=== PATIENT | female | born 1945 | race Caucasian/White ===

== ENCOUNTER 2019-11-08 10:41 | Observation (INO) | payer MEDICARE ==
[~2019-11-08] VITALS: Ht 170.2 cm; Wt 68.0 kg
--- NOTE | 2019-11-08 10:41 | NUR ---
ARRIVED VIA EMS REBECCA JARVISD, JAIME [place]
--- NOTE | 2019-11-08 10:41 | NUR ---
PT TO ROOM [facility]EM[facility] IN NO DISTRESS
--- NOTE | 2019-11-08 11:00 | NUR ---
PT WAS GIVEN 324MG ASA AT [facility] [employer]PER[employer]
[2019-11-08 11:31] LABS: HEMOGLOBIN 15.5 g/dl (12.0-16.0); IMMATURE GRANULOCYTES 0.2 % (0.0-5.0); MEAN CELL VOLUME 89.8 fL CALC (80.0-100.0); MEAN CORPUSCULAR HGB 30.3 pG CALC (26.0-32.0); MEAN CORPUSCULAR HGB CONC 33.7 g/L CALC (32.0-36.0); NEUT# 3.34 thou/uL (2.00-7.15); RED BLOOD COUNT 5.12 mill/uL (4.20-5.60); RED CELL DISTRI WIDTH 12.7 % (11.5-15.5)
[2019-11-08 11:45] LABS: ANION GAP 14 (6-22 (CALC)); BUN 11 mg/dL (8-23); BUN/CREATININE RATIO 17 (12-20 (CALC)); CARBON DIOXIDE 27 mmol/l (22-30); CHLORIDE 105 mmol/l (95-108); CREATININE 0.7 mg/dL (0.5-1.0); GFR > 60 ML/MIN (>=60 (CALC)); GFR FOR AFR.AMER. > 60 ML/MIN (>=60 (CALC)); POTASSIUM 3.9 mmol/l (3.5-5.1); SODIUM 142 mmol/l (137-146)
--- NOTE | 2019-11-08 12:00 | NUR ---
PT STATES HSE HAS HAD CHEST PAIN ON AND OFF FOR MONTHS, COMAPLINS OF ANXIETY/FRUSTRATION WITH FAMILY MEMBERS
[2019-11-08 13:00] LABS: URINE BILIRUBIN - DIPSTICK NEGATIVE (NEGATIVE); URINE BLOOD DIPSTICK NEGATIVE (NEGATIVE); URINE COLOR YELLOW; URINE GLUCOSE - DIPSTICK NEGATIVE (NEGATIVE); URINE KETONE NEGATIVE (NEGATIVE); URINE LEUK ESTERASE NEGATIVE (NEGATIVE); URINE NITRITE - DIPSTICK NEGATIVE (Negative); URINE PROTEIN - DIPSTICK NEGATIVE (NEG-TRACE); URINE SPECIFIC GRAVITY 1.015; URINE UROBILINOGEN - DIPSTICK 0.2 E.U./dL (0.2)
--- NOTE | 2019-11-08 13:00 | NUR ---
PT RESTING ON STRETCHER, CALL LORENZ WITHIN REACH
--- NOTE | 2019-11-08 14:50 | NUR ---
PT RESTING AWARE OF PLANNED ADMISSION, CONTINUES TO REST AND DENY CP.
--- NOTE | 2019-11-08 15:24 | NUR ---
PT RESTING NO COMPLAINTS OF PAIN CALL KELECHI AMARO
--- NOTE | 2019-11-08 16:54 | NUR ---
SBAR PRINTED TO FLOOR
--- NOTE | 2019-11-08 17:14 | NUR ---
REPORT CALLED TO JAYLON
[2019-11-08 17:58] VITALS: BP 228/110
--- NOTE | 2019-11-08 17:58 | NUR ---
PT TRANSPORTED VIA WHEELCHAIR ACCOMPANIED BY ER STAFF. PT ALERT AND ORIENTED. DENIES ANY PAIN OR DISCOMFORT AT THIS TIME. AMBULATED WITH STEADY GAIT IN ROOM. PT ORIENTED TO ROOM AND CALL LIGHT SYSTEM. DISCUSSED POC. PT VERBALIZED UNDERSTANDING. CALL LIGHT WITHIN REACH. WILL CONTINUE TO MONITOR.
--- NOTE | 2019-11-08 18:00 | NUR ---
PT TRASNPORTED TO SURG WITH TELE VIA WHEELCHAIR, ALL BELONGINGS SENT WITH PT AND NURSE JAYLON AT [facility] ON ARRIVAL STANDING SCALE WEIGHT OBTAINED 149.5 LBS OR 68 KG.
[2019-11-08 18:33] VITALS: BP 196/87
--- NOTE | 2019-11-08 19:30 | NUR ---
PATIENT RESTING IN BEDHOB ELEVATED. PATIENT IS ALERT AND ORIENTEDX3. TELE MONITORING DEVICE IN PLACE. SALINE LOCK TO RAC INTACT-APPEARS HEALTHY AT THIS TIME. NO COMPLAINTS AT THIS TIME. CALL LIGHT IN REACH. WILL CONT TO MONITOR.
[2019-11-08 19:45] VITALS: BP 147/74
--- NOTE | 2019-11-08 21:25 | NUR ---
PATIENT CAME TO THE NURSING STATION AND C/O CHEST PAIN. APPEARS SOB AND ASSISTED BACK TO ROOM. ASSISTED BACK TO BED. VS TAKEN AND BP-185/106, HR-95, O2 SAT 98%. STATES THAT PAIN IS 10/10-C/O SQEEZING PRESSURE PAIN. O2 VIA NASAL CANNULA APPLIED. NITRO 0.4MG SL GIVEN. 2139-RESTING IN BED-O2 IN PLACE. STATES THAT PAIN IS IMPROVED BUT STILL 5/10 ON PAIN SCALE. VS-159/88, HR-90 WITH O2 SAT 99%. MEDICATED WITH NITRO 0.4MG SL. WILL CONT TO MONITOR. 0-EKG DONE. NO CHANGES NOTED FROM ADMISSION EKG. STAES THAT SHE IS FEELING MUCH BETTER. CALL LIGHT IN REACH. WILL CONT TO MONITOR.
[2019-11-08 21:40] VITALS: BP 159/88
[2019-11-08 22:06] VITALS: BP 132/80
[2019-11-09] VITALS: BP 142/80
--- NOTE | 2019-11-09 | NUR ---
APPEARS SLEEPING AT THIS TIME WITH O2 VIA NASAL CANNULA IN PLACE. RESP ARE EVEN AND UNLABORED. CALL LIGHT IN REACH. WILL CONT TO MONITOR.
--- NOTE | 2019-11-09 01:40 | NUR ---
PATIENT RESTING IN BED. TROP CONT TO BE NEG AT THIS TIME. CALL LIGHT IN REACH. WILL CONT TO MONITOR.
--- NOTE | 2019-11-09 04:00 | NUR ---
PATIENT RESTING IN BED-APPEARS SLEEPING WITH EYES CLOSED. RESP ARE EVEN AND UNLABORED. CALL LIGHT IN REACH. WILL CONT TO MONITOR.
[2019-11-09 05:12] VITALS: BP 145/93
--- NOTE | 2019-11-09 07:30 | NUR ---
PT RESTING IN BED. NO REP. DISTRESS NOTED. PT DENIES CHEST PAIN AT THIS TIME. ASSESSMENT COMPLETED. SALINE LOCK INTACT IN RIGHT AC, SITE WITHOUT REDNESS OR EDEMA NOTED. WILL CONTINUE TO MONITOR. CALL LIGHT WITHIN REACH.
[2019-11-09 07:34] VITALS: BP 131/77
[2019-11-09 07:40] VITALS: BP 144/75
[2019-11-09 10:30] VITALS: BP 131/69
--- NOTE | 2019-11-09 12:33 | NUR ---
PT RESTING IN BED. NO RESP. DISTRESS NOTED. NO CHANGE IN ASSESSMENT. NO COMPLAINTS VOICED AT THIS TIME. WILL CONTINUE TO MONITOR PT'S CONDITION. CALL LIGHT WITHIN REACH.
[2019-11-09 15:28] LABS: CHOLESTEROL HDL RATIO 6.3 (<4.4 (CALC))
[2019-11-09 15:50] VITALS: BP 150/86
== END 2019-11-09 16:00 | disposition home or self-care (01) ==
LOC: ED 10:41 → ED-I 12:36 → ED 13:19 → MS2 13:20 → ED-I 13:20 → MS2 17:00
PROVIDERS: Family Medicine; Nurse Practitioner Family; ADMIT Internal Medicine; ATTEND Internal Medicine
DX: R07.9 Chest pain, unspecified (principal); I16.0 Hypertensive urgency; I10 Essential (primary) hypertension
CPT/HCPCS: G0378

== ENCOUNTER 2023-01-09 11:52 | Inpatient (IN) | payer MEDICARE ==
[~2023-01-09] VITALS: Ht 170.2 cm; Wt 81.0 kg
[2023-01-09] VITALS (50 sets, daily range): BP systolic 146–198; BP diastolic 67–151
[2023-01-09 12:44] LABS: BASO% 0.7 % (0-3); EOS% 0.8 % (0-8); HEMATOCRIT 49.5 % (37.0-47.0); HEMOGLOBIN 16.2 g/dl (12.0-16.0); IMMATURE GRANULOCYTES 0.2 % (0.0-5.0); LYMPH% 19.4 % (15-41); MEAN CORPUSCULAR HGB 29.8 pG CALC (26.0-32.0); MEAN CORPUSCULAR HGB CONC 32.7 g/dL CAL (32.0-36.0); NEUT# 4.07 thou/uL (2.00-7.15); NEUT% 66.9 % (42-76); RED BLOOD COUNT 5.44 mill/uL (4.20-5.60); RED CELL DISTRI WIDTH 12.8 % (11.5-15.5)
[2023-01-09 13:02] LABS: INTERNATIONAL NORMALIZED RATIO 1.1 RATIO (0.7-1.3)
[2023-01-09 13:23] LABS: URINE BLOOD DIPSTICK LARGE (NEGATIVE); URINE COLOR YELLOW; URINE GLUCOSE - DIPSTICK NEGATIVE (NEGATIVE); URINE KETONE 40 mg/dL (NEGATIVE); URINE LEUK ESTERASE NEGATIVE (NEGATIVE); URINE PH 5.5 (4.5-8.0); URINE PROTEIN - DIPSTICK 100 mg/dL (NEG-TRACE); URINE SPECIFIC GRAVITY >=1.030
[2023-01-09 13:24] LABS: ALBUMIN 4.6 g/dL (3.2-5.0); ALKALINE PHOSPHATASE 82 u/l (38-126); ANION GAP 14 (6-22 (CALC)); BILIRUBIN, TOTAL 0.7 mg/dL (0.02-1.3); BUN 16 mg/dL (8-23); BUN/CREATININE RATIO 13 (12-20 (CALC)); CARBON DIOXIDE 25 mmol/l (22-30); CHLORIDE 106 mmol/l (95-108); CREATININE 1.2 mg/dL (0.5-1.0); GFR FOR AFR.AMER. 52 ML/MIN (>=60 (CALC)); GFR OTHER RACES 43 ML/MIN (>=60 (CALC)); POTASSIUM 3.4 mmol/l (3.5-5.1); SGOT/AST 45 u/l (9-36); SODIUM 142 mmol/l (137-146); TOTAL PROTEIN 8.4 g/dL (6.3-8.2)
[2023-01-09 13:25] LABS: URINE BILIRUBIN - DIPSTICK SMALL (NEGATIVE); URINE NITRITE - DIPSTICK POSITIVE (Negative)
[2023-01-09 13:26] LABS: URINE EPITHELIAL CELLS MODERATE EPI/hpf (0-FEW); URINE RBC 25-50 RBC/hpf (0-5)
[2023-01-09 13:27] LABS: URINE BACTERIA MODERATE hpf; URINE MUCUS FEW hpf (NONE-FEW)
[2023-01-10] VITALS (8 sets, daily range): BP systolic 141–176; BP diastolic 62–76
[2023-01-10 02:19] LABS: BASO% 0.3 % (0-3); EOS% 2.4 % (0-8); HEMATOCRIT 44.9 % (37.0-47.0); HEMOGLOBIN 14.4 g/dl (12.0-16.0); IMMATURE GRANULOCYTES 0.2 % (0.0-5.0); LYMPH% 20.5 % (15-41); MEAN CELL VOLUME 90.5 fL CALC (80.0-100.0); MEAN CORPUSCULAR HGB CONC 32.1 g/dL CAL (32.0-36.0); MONO% 11.4 % (2-13); NEUT# 4.28 thou/uL (2.00-7.15); NEUT% 65.2 % (42-76); RED BLOOD COUNT 4.96 mill/uL (4.20-5.60); RED CELL DISTRI WIDTH 12.9 % (11.5-15.5)
[2023-01-10 02:44] LABS: ALKALINE PHOSPHATASE 69 u/l (38-126); ANION GAP 9 (6-22 (CALC)); BUN 17 mg/dL (8-23); BUN/CREATININE RATIO 19 (12-20 (CALC)); CARBON DIOXIDE 25 mmol/l (22-30); CHLORIDE 109 mmol/l (95-108); CREATININE 0.9 mg/dL (0.5-1.0); GFR FOR AFR.AMER. > 60 ML/MIN (>=60 (CALC)); GFR OTHER RACES 60 ML/MIN (>=60 (CALC)); SGOT/AST 35 u/l (9-36); SODIUM 139 mmol/l (137-146)
[2023-01-10 02:56] LABS: ALBUMIN 3.6 g/dL (3.2-5.0); BILIRUBIN, TOTAL 0.4 mg/dL (0.02-1.3); TOTAL PROTEIN 6.5 g/dL (6.3-8.2)
[2023-01-10 15:23] LABS: CHOLESTEROL HDL RATIO 6.1 (<4.4 (CALC))
[2023-01-11] VITALS (10 sets, daily range): BP systolic 139–182; BP diastolic 63–88
[2023-01-11 05:33] LABS: BASO% 0.5 % (0-3); EOS% 3.6 % (0-8); HEMOGLOBIN 14.9 g/dl (12.0-16.0); IMMATURE GRANULOCYTES 0.2 % (0.0-5.0); LYMPH% 23.1 % (15-41); MEAN CORPUSCULAR HGB 29.8 pG CALC (26.0-32.0); MEAN CORPUSCULAR HGB CONC 33.1 g/dL CAL (32.0-36.0); MONO% 9.1 % (2-13); NEUT# 4.2 thou/uL (2.00-7.15); NEUT% 63.5 % (42-76); RED CELL DISTRI WIDTH 12.8 % (11.5-15.5)
[2023-01-11 06:00] LABS: ALBUMIN 3.8 g/dL (3.2-5.0); ALKALINE PHOSPHATASE 69 u/l (38-126); ANION GAP 9 (6-22 (CALC)); BUN 10 mg/dL (8-23); BUN/CREATININE RATIO 14 (12-20 (CALC)); CARBON DIOXIDE 22 mmol/l (22-30); CHLORIDE 111 mmol/l (95-108); CREATININE 0.7 mg/dL (0.5-1.0); GFR FOR AFR.AMER. > 60 ML/MIN (>=60 (CALC)); GFR OTHER RACES > 60 ML/MIN (>=60 (CALC)); POTASSIUM 3.4 mmol/l (3.5-5.1); SGOT/AST 39 u/l (9-36); SODIUM 139 mmol/l (137-146)
[2023-01-11 06:04] LABS: BILIRUBIN, TOTAL 0.7 mg/dL (0.02-1.3)
[2023-01-12 00:07] VITALS: BP 151/56
[2023-01-12 03:56] VITALS: BP 156/80
[2023-01-12 07:03] VITALS: BP 156/80
[2023-01-12 10:01] VITALS: BP 161/79
[2023-01-12 17:17] VITALS: BP 150/82
[2023-01-12 19:35] VITALS: BP 154/75
[2023-01-13] VITALS (7 sets, daily range): BP systolic 139–178; BP diastolic 73–100
[2023-01-14 00:46] VITALS: BP 142/70
[2023-01-14 04:40] VITALS: BP 127/62
[2023-01-14 05:36] LABS: BASO% 0.3 % (0-3); EOS% 1.1 % (0-8); HEMATOCRIT 42.5 % (37.0-47.0); HEMOGLOBIN 13.8 g/dl (12.0-16.0); IMMATURE GRANULOCYTES 0.1 % (0.0-5.0); LYMPH% 13.2 % (15-41); MEAN CELL VOLUME 90.4 fL CALC (80.0-100.0); MEAN CORPUSCULAR HGB 29.4 pG CALC (26.0-32.0); MEAN CORPUSCULAR HGB CONC 32.5 g/dL CAL (32.0-36.0); MONO% 6.5 % (2-13); NEUT# 6.99 thou/uL (2.00-7.15); NEUT% 78.8 % (42-76); RED BLOOD COUNT 4.7 mill/uL (4.20-5.60); RED CELL DISTRI WIDTH 12.7 % (11.5-15.5)
[2023-01-14 05:51] LABS: ALBUMIN 3.5 g/dL (3.2-5.0); ALKALINE PHOSPHATASE 62 u/l (38-126); ANION GAP 8 (6-22 (CALC)); BUN 11 mg/dL (8-23); BUN/CREATININE RATIO 13 (12-20 (CALC)); CARBON DIOXIDE 23 mmol/l (22-30); CHLORIDE 112 mmol/l (95-108); CREATININE 0.9 mg/dL (0.5-1.0); GFR FOR AFR.AMER. > 60 ML/MIN (>=60 (CALC)); GFR OTHER RACES 60 ML/MIN (>=60 (CALC)); POTASSIUM 3.2 mmol/l (3.5-5.1); SGOT/AST 35 u/l (9-36); SODIUM 140 mmol/l (137-146); TOTAL PROTEIN 6.9 g/dL (6.3-8.2)
[2023-01-14 05:56] LABS: BILIRUBIN, TOTAL 0.3 mg/dL (0.02-1.3)
[2023-01-14 06:46] VITALS: BP 138/70
[2023-01-14 09:32] VITALS: BP 156/79
[2023-01-14 15:08] VITALS: BP 157/76
[2023-01-14 19:15] VITALS: BP 159/76
[2023-01-15 00:04] VITALS: BP 169/88
[2023-01-15 04:10] VITALS: BP 147/62
[2023-01-15 05:29] LABS: BASO% 0.5 % (0-3); EOS% 5.9 % (0-8); HEMATOCRIT 40.8 % (37.0-47.0); HEMOGLOBIN 13.3 g/dl (12.0-16.0); IMMATURE GRANULOCYTES 0.1 % (0.0-5.0); LYMPH% 19.5 % (15-41); MEAN CELL VOLUME 90.5 fL CALC (80.0-100.0); MEAN CORPUSCULAR HGB 29.5 pG CALC (26.0-32.0); MEAN CORPUSCULAR HGB CONC 32.6 g/dL CAL (32.0-36.0); MONO% 8.4 % (2-13); NEUT# 5.55 thou/uL (2.00-7.15); NEUT% 65.6 % (42-76); RED BLOOD COUNT 4.51 mill/uL (4.20-5.60)
[2023-01-15 05:45] LABS: ALBUMIN 3.5 g/dL (3.2-5.0); ALKALINE PHOSPHATASE 68 u/l (38-126); ANION GAP 8 (6-22 (CALC)); BILIRUBIN, TOTAL 0.4 mg/dL (0.02-1.3); BUN 11 mg/dL (8-23); BUN/CREATININE RATIO 14 (12-20 (CALC)); CARBON DIOXIDE 24 mmol/l (22-30); CHLORIDE 112 mmol/l (95-108); CREATININE 0.8 mg/dL (0.5-1.0); GFR FOR AFR.AMER. > 60 ML/MIN (>=60 (CALC)); GFR OTHER RACES > 60 ML/MIN (>=60 (CALC)); POTASSIUM 3.4 mmol/l (3.5-5.1); SGOT/AST 33 u/l (9-36); SODIUM 141 mmol/l (137-146); TOTAL PROTEIN 6.9 g/dL (6.3-8.2)
[2023-01-15 07:15] VITALS: BP 160/76
[2023-01-15 08:49] VITALS: BP 162/68
[2023-01-15] MEDS ORDERED: AMLODIPINE BESYL5 MG PO (10:06)
[2023-01-15] MEDS ORDERED: ADLT ASA LOW81 MG PO (10:06)
[2023-01-15] MEDS ORDERED: LIPITOR80 M1 PO (10:06)
[2023-01-15] MEDS ORDERED: PLAVIX75 MG PO (10:06)
[2023-01-15 10:58] VITALS: BP 167/76
== END 2023-01-15 13:23 | DRG 65 ==
LOC: ED 11:52 → ED-I 12:22 → ED 12:22 → ED-I 14:40 → ED 15:11 → MS2 15:12
PROVIDERS: Nurse Practitioner; Nurse Practitioner Family; Psychiatry & Neurology Neurology; ADMIT Internal Medicine; ATTEND Internal Medicine
DX: I63.81 Other cerebral infarction due to occlusion or stenosis of small artery (principal); N39.0 Urinary tract infection, site not specified; R47.01 Aphasia; R47.1 Dysarthria and anarthria; R27.0 Ataxia, unspecified; R29.810 Facial weakness; R29.703 NIHSS score 3; I10 Essential (primary) hypertension; B96.20 Unspecified Escherichia coli [E. coli] as the cause of diseases classified elsewhere; Z20.822 Contact with and (suspected) exposure to COVID-19
CPT/HCPCS: Q3014

== ENCOUNTER 2024-07-19 20:56 | Emergency (ER) | payer MEDICARE ==
[~2024-07-19] VITALS: Ht 160 cm; Wt 70.0 kg
[2024-07-19] VITALS (9 sets, daily range): BP systolic 154–182; BP diastolic 70–88
[~2024-07-19 20:56] MED LIST: ADLT ASA LOW81 MG PO; AMLODIPINE BESYL5 MG PO; BENZONATATE150 MG PO; LIPITOR80 M1 PO; LISINOPRIL10 MG PO; NORVASC PO; NORVASC10 M1 PO; NORVASC5 M1 PO; PLAVIX75 MG PO; TRAMADOL HYDROC50 M1 PO; ZPAK PO
[2024-07-19] MEDS ORDERED: SODIUM CHLORIDE 0.9% 1,000 ML IV ONE (21:10)
[2024-07-19 21:25] LABS: BASO% 0.5 % (0-3); EOS% 2.9 % (0-8); HEMATOCRIT 43.9 % (37.0-47.0); HEMOGLOBIN 14.4 g/dl (12.0-16.0); LYMPH% 18.5 % (15-41); MEAN CELL VOLUME 90.9 fL CALC (80.0-100.0); MEAN CORPUSCULAR HGB 29.8 pG CALC (26.0-32.0); MEAN CORPUSCULAR HGB CONC 32.8 g/dL CAL (32.0-36.0); MONO% 8.7 % (2-13); NEUT# 5.59 thou/uL (2.00-7.15); NEUT% 69.4 % (42-76); RED BLOOD COUNT 4.83 mill/uL (4.20-5.60)
[2024-07-19 21:42] LABS: ANION GAP 9 (6-22 (CALC)); BILIRUBIN, TOTAL 0.6 mg/dL (0.02-1.3); BUN 23 mg/dL (8-23); BUN/CREATININE RATIO 23 (12-20 (CALC)); CARBON DIOXIDE 28 mmol/l (22-30); CHLORIDE 110 mmol/l (95-108); CPK 123 u/l (30-135); ESTIMATED GFR 57 ML/MIN (>=90 (CALC)); MAGNESIUM 2.2 mg/dL (1.6-2.3); POTASSIUM 3.5 mmol/l (3.5-5.1); SODIUM 143 mmol/l (137-146)
[2024-07-19 21:55] LABS: ALBUMIN 4.4 g/dL (3.2-5.0); ALKALINE PHOSPHATASE 83 u/l (38-126); SGOT/AST 36 u/l (9-36); TOTAL PROTEIN 8.1 g/dL (6.3-8.2)
[2024-07-19 22:12] LABS: TSH, 3RD GENERATION 2.07 uIU/mL (0.47 - 4.68)
[2024-07-19] MEDS ORDERED: LACTATED RINGER'S 1,000 ML IV ONE (22:55)
[2024-07-19 23:23] LABS: URINE BILIRUBIN - DIPSTICK Negative (NEGATIVE); URINE BLOOD DIPSTICK Trace-intact (NEGATIVE); URINE GLUCOSE - DIPSTICK Negative (NEGATIVE); URINE KETONE Negative (NEGATIVE); URINE LEUK ESTERASE Negative (NEGATIVE); URINE NITRITE - DIPSTICK Negative (Negative); URINE PROTEIN - DIPSTICK Negative (NEG-TRACE); URINE UROBILINOGEN - DIPSTICK 0.2 E.U./dL (0.2)
[2024-07-19 23:24] LABS: URINE COLOR Yellow
[2024-07-20 00:06] VITALS: BP 165/80
== END 2024-07-20 00:08 | disposition home or self-care (01) ==
LOC: ED 20:56
PROVIDERS: Family Medicine
DX: R53.1 Weakness (principal); I10 Essential (primary) hypertension; Z86.73 Personal history of transient ischemic attack (TIA), and cerebral infarction without residual deficits; Z20.822 Contact with and (suspected) exposure to COVID-19

== ENCOUNTER 2024-11-08 17:54 | Inpatient (IN) | payer MEDICARE ==
[~2024-11-08] VITALS: Ht 160 cm; Wt 65.8 kg
[2024-11-08] MEDS ORDERED: SODIUM CHLORIDE 0.9% 1,000 ML IV ONE ×3 (18:15→20:05)
[2024-11-08] MEDS ORDERED: ONDANSETRON HCl 4 MG/2 ML SDV IV ONE (18:20)
[2024-11-08 18:30] LABS: HEMATOCRIT 50.7 % (37.0-47.0); HEMOGLOBIN 16.3 g/dl (12.0-16.0); IMMATURE GRANULOCYTES 0.4 % (0.0-5.0); LYMPH% 3.7 % (15-41); MEAN CELL VOLUME 92.5 fL CALC (80.0-100.0); MEAN CORPUSCULAR HGB 29.7 pG CALC (26.0-32.0); MEAN CORPUSCULAR HGB CONC 32.1 g/dL CAL (32.0-36.0); MONO% 6.6 % (2-13); NEUT# 19.56 thou/uL (2.00-7.15); NEUT% 89.3 % (42-76); RED BLOOD COUNT 5.48 mill/uL (4.20-5.60)
[2024-11-08] MEDS ORDERED: MORPHINE SULFATE 4 MG/ML VIAL IV ONE (18:30)
[2024-11-08 18:43] LABS: ALBUMIN 4.4 g/dL (3.2-5.0); CREATININE 1.2 mg/dL (0.5-1.0)
[2024-11-08 18:57] LABS: BILIRUBIN, TOTAL 1.1 mg/dL (0.02-1.3)
--- NOTE | 2024-11-08 19:00 | NUR ---
REPORT RECEIVED FROM OFF GOING NURSE.
--- NOTE | 2024-11-08 19:32 | NUR ---
PATIENT MEDICATED AND GIVEN PAIN MEDICATIONS.
--- NOTE | 2024-11-08 20:35 | NUR ---
STRAIGHT CATH AND EKG COMPLETED.
--- NOTE | 2024-11-08 20:43 | NUR ---
SEPSIS ALERT CALLED.
[2024-11-08] MEDS ORDERED: Zaleplon 5 MG/CAP PO PRN (20:50)
[2024-11-08] MEDS ORDERED: ACETAMINOPHEN 325 MG/TAB PO PRN (20:50)
[2024-11-08] MEDS ORDERED: SODIUM CHLORIDE 0.9% 1,000 ML IV SCH (20:50)
[2024-11-08] MEDS ORDERED: MAGNESIUM HYDROXIDE 30 ML UDC PO PRN (20:50)
[2024-11-08 21:08] LABS: URINE BILIRUBIN - DIPSTICK Negative (NEGATIVE); URINE BLOOD DIPSTICK Moderate (NEGATIVE); URINE COLOR Yellow; URINE GLUCOSE - DIPSTICK Negative (NEGATIVE); URINE KETONE 15 mg/dL (NEGATIVE); URINE LEUK ESTERASE Negative (NEGATIVE); URINE NITRITE - DIPSTICK Negative (Negative); URINE PH 5.5 (4.5-8.0); URINE PROTEIN - DIPSTICK 100 mg/dL (NEG-TRACE); URINE SPECIFIC GRAVITY 1.025; URINE UROBILINOGEN - DIPSTICK 0.2 E.U./dL (0.2)
[2024-11-08 21:14] LABS: URINE EPITHELIAL CELLS MANY EPI/hpf (0-FEW)
[2024-11-08 21:16] LABS: URINE BACTERIA MODERATE hpf; URINE RBC 0-2 RBC/hpf (0-5); URINE SQUAMOUS EPITHELIAL CELL MANY EPI/hpf (0-FEW); URINE YEAST FEW hpf
--- NOTE | 2024-11-08 21:57 | NUR ---
REPORT GIVEN TO TRISTAN.
--- NOTE | 2024-11-08 22:07 | NUR ---
PATIENT TAKEN TO [facility] ROOM 271 WITH TELE NUMBER [id number].
--- NOTE | 2024-11-08 22:08 | NUR ---
3RD BOLUS STILL RUNNING.
[2024-11-08 22:10] VITALS: BP 134/66
--- NOTE | 2024-11-08 22:10 | NUR ---
PATIENT ADMITTED TO [facility] VIA STRETCHER. ALERT AND ABLE TO MAKE NEEDS KNOWN. TAKES A SECOND TO REPLY WHEN SPOKEN TOO. DOES HAVE HX OF PREVIOUS STROKE. ASSESSMENT COMPLETE. NO DISTRESS NOTED. NO COMPLAINTS OF PAIN. TOTAL CARE AT THIS TIME. REDDENED AREA OBSERVED TO RIGHT CHEST WITH SMALL BLISTERLIKE AREA. REDDENED SITE TO UPPER LEFT BACK/SHOULDER AREA. PATIENT HAS LARGE OPEN WOUND TO BUTTOCKS/COCCYX. SITE APPEARS RED WITH AREAS OF BLACK LIKE IN COLOR. PICTURES TO BE PUT IN CHART. PATIENT PROVIDED WITH BED BATH. CREAM AND DRESSING APPLIED TO BUTTOCKS. PATIENT ORIENTED TO ROOM, CALL LORENZ AND SURROUNDINGS. BED IN LOW POSITION. CALL LORENZ IN REACH.
[2024-11-08 22:31] VITALS: BP 134/66
--- NOTE | 2024-11-08 23:01 | NUR ---
INFORMED HAT CUTTER PROVIDER OF PATIENTS STATUS OF HAVING A LARGE WOUND ON BOTTOM/COCCYX. ORDER RECEIVED TO INSERT ROMERO CATHETER.
[2024-11-09 00:37] VITALS: BP 136/57
--- NOTE | 2024-11-09 03:30 | NUR ---
PATIENT REMAINS RESTING IN BED. NO SIGNS OF DISTRESS. NO COMPLAINTS OF PAIN VOICED. ROMERO REMAINS PATENT DRAINING CLEAR YELLOW URINE. BED REMAINS IN LOW POSITION. CALL LORENZ IN REACH.
[2024-11-09 05:15] VITALS: BP 139/61
[2024-11-09 05:35] LABS: BASO% 0.1 % (0-3); EOS% 0.1 % (0-8); IMMATURE GRANULOCYTES 0.5 % (0.0-5.0); LYMPH% 2.8 % (15-41); MEAN CORPUSCULAR HGB 30.4 pG CALC (26.0-32.0); MEAN CORPUSCULAR HGB CONC 31.6 g/dL CAL (32.0-36.0); MONO% 6.9 % (2-13); NEUT# 17.69 thou/uL (2.00-7.15); NEUT% 89.6 % (42-76); RED BLOOD COUNT 4.51 mill/uL (4.20-5.60); RED CELL DISTRI WIDTH 13.2 % (11.5-15.5)
[2024-11-09 05:40] LABS: HEMATOCRIT 43.3 % (37.0-47.0); HEMOGLOBIN 13.7 g/dl (12.0-16.0)
[2024-11-09 06:00] LABS: BILIRUBIN, TOTAL 0.8 mg/dL (0.02-1.3); CREATININE 0.9 mg/dL (0.5-1.0); POTASSIUM 3.8 mmol/l (3.5-5.1)
[2024-11-09 06:13] LABS: ALBUMIN 2.7 g/dL (3.2-5.0); TOTAL PROTEIN 5.5 g/dL (6.3-8.2)
[2024-11-09 07:27] VITALS: BP 124/48
--- NOTE | 2024-11-09 09:00 | NUR ---
PT SEEN AWAKE, ALERT, UNABLE TO EXPRESS HERSELF WELL PER HX CVA. PT ALSO DOES NOT HAVE STRENGTH TO MOVE HERSELF IN BED. IVF RUNNING, ROMERO IN PLACE.
[2024-11-09] MEDS ORDERED: ASPIRIN EC 81 MG/TAB PO SCH (12:00)
--- NOTE | 2024-11-09 13:00 | NUR ---
PT CONTINUES BEFORE, RESTING IN THE BED WITHOUT MOVING AROUND. PT REPOSITIONED FOR COMFORT NEEDED. FAMILY UPDATED ON PHONE. SISTER SAID PT WAS LIVING WITH HER BUT MOVED OUT EVEN THOUGHT IT WAS NOT A GOOD IDEA.
[2024-11-09 15:44] VITALS: BP 145/58
[2024-11-09] MEDS ORDERED: ATORVASTATIN CALCIUM 40 MG/TAB PO SCH (17:00)
--- NOTE | 2024-11-09 17:10 | NUR ---
PT WAS FED SUPPER TONIGHT, BUT SHE WAS ONLY ABLE TO EAT A COUPLE OF SPOONFULS OF APPLESAUSE. NO CHOKING OR COUGHING.
[2024-11-09 19:18] VITALS: BP 151/69
--- NOTE | 2024-11-09 20:00 | NUR ---
PATIENT RESTING IN BED AT THIS TIME-AWAKE ALERT BUT SLOW TO RESPOND TO QUESTIONS. ORIENTED TO PERSON AND BIRTHDATE. KNOWS THAT SHE IS IN THE HOSPITAL. TELE MONITOR IN PLACE AND READING SR-71 WITH 1ST DEGREE AVB. IVF NS PATENT AND INFUSING VIA LEFT HAND SITE AT 125CC/HR. ROMERO CATH PATENT AND DRAINING YELLOW URINE. SAFETY PRECAUTIONS REINFORCED. CALL LIGHT IN REACH. WILL CONT TO MONITOR.
[2024-11-10 00:19] VITALS: BP 149/68
--- NOTE | 2024-11-10 01:50 | NUR ---
PATIENT RESTING IN BED-PROVIDED WITH MOUTH CARE, TAKING SIPS OF PO FLUIDS. MOUTH IS VERY DRY. IVF PATENT AND INFUSING VIA LEFT HAND AT 125CC/HR. ROMERO PATENT AND DRAINING YELLOW URINE. PATIENT TURNED AND REPOSITIONED. WOUND CARE DONE TO BUTTOCKS/COCCYX WOUND. WASHED AND RINSED WITH SALINE. MEDHONEY APPLIED ORDERED AND COVERED WITH AQUACEL FOAM DRESSING. PATIENT POSITIONED ON LEFT SIDE. SAFETY PRECAUTIONS REINFORCED. BED ALARM IN PLACE FOR PATIENT SAFETY. CALL LIGHT IN REACH. WILL CONT TO MONITOR.
--- NOTE | 2024-11-10 04:14 | NUR ---
PATIENT RESTING IN BED POSITIONED ON SIDE. EYES ARE CLOSED AND RESPS ARE EVEN AND UNLABORED. TELE MONITOR IN PLACE AND CONT TO READ SR-70'S 1ST DEGREE AVB. IVF PATENT AND INFUSING VIA LEFT HAND SITE AT 125CC/HR. ROMERO PATENT AND DRAINING YELLOW URINE. BED ALARM IN PLACE FOR PATIENT SAFETY. CALL LIGHT IN REACH. WILL CONT TO MONITOR.
[2024-11-10 04:40] VITALS: BP 139/71
[2024-11-10 05:24] LABS: BASO% 0.1 % (0-3); EOS% 0.1 % (0-8); HEMOGLOBIN 12.4 g/dl (12.0-16.0); IMMATURE GRANULOCYTES 0.2 % (0.0-5.0); MEAN CELL VOLUME 94.1 fL CALC (80.0-100.0); MEAN CORPUSCULAR HGB 30.7 pG CALC (26.0-32.0); MEAN CORPUSCULAR HGB CONC 32.6 g/dL CAL (32.0-36.0); MONO% 7.4 % (2-13); NEUT# 11.7 thou/uL (2.00-7.15); NEUT% 87.2 % (42-76); RED BLOOD COUNT 4.04 mill/uL (4.20-5.60); RED CELL DISTRI WIDTH 13.2 % (11.5-15.5)
[2024-11-10 05:27] LABS: ALBUMIN 2.5 g/dL (3.2-5.0); BILIRUBIN, TOTAL 0.7 mg/dL (0.02-1.3); CREATININE 0.9 mg/dL (0.5-1.0); MAGNESIUM 2.3 mg/dL (1.6-2.3); POTASSIUM 3.5 mmol/l (3.5-5.1); TOTAL PROTEIN 5.2 g/dL (6.3-8.2)
[2024-11-10 06:56] VITALS: BP 134/57
--- NOTE | 2024-11-10 07:00 | NUR ---
SHIFT CHANGE REPORT, PT AWAKE AND ALERT, ORIENTED PT PERSON AND PLACE, DENIES PAIN AT THIS TIME, TELE MONITOR IN PLACE, ROMERO CATHETER IN PLACE WITH YELLOW URINE, CALL LORENZ IN REACH AND BED LOCKED IN LOWEST POSITION WITH ALARM ACTIVATED.
[2024-11-10] MEDS ORDERED: DEXTROSE W/ SODIUM CHLORIDE 1,000 ML IV SCH (07:10)
[2024-11-10 10:36] VITALS: BP 154/54
--- NOTE | 2024-11-10 12:00 | NUR ---
REFUSED MEAL BUT HAD APPLESAUCE, SUJIT-CARE DONE BY STAFF, MAX ASSIST, FLACCID BODY/ESTREMETIES.
[2024-11-10 14:50] VITALS: BP 127/49
--- NOTE | 2024-11-10 16:00 | NUR ---
PT STARES AT NURSE STEDFASTLY AND DOES NOT RESPOND TO VERBAL STIMULI, WILL NOT EAT SUPPER OR TAKE MEDS BUT DOES NOT ANSWER WHEN ASKED WHETHER SHE WILL EAT. NURSE INFORMED HER STAFF IS NOT FORCING ANYTHING ON HER BUT SHE HAS TO LET US KNOW WHETHER OR NOT SHE WANTS WHATEVER IS OFFERED, THEN SHE RESPONDED VERBALLY STATING HER WISHES.
[2024-11-10 18:58] VITALS: BP 118/58
--- NOTE | 2024-11-10 19:45 | NUR ---
PATIENT RESTING IN BED WITH HOB ELEVATED AND EYES ARE CLOSED. RESPS ARE EVEN AND UNLABORED. POSITIONED ON HER RIGHT SIDE. IVF D51/4NS PATENT AND INFUSING VIA LEFT HAND SITE AT 100CC/HR. ROMERO CATH PATENT AND DRAINING YELLOW URINE. TELE MONITOR IN PLACE AND READING SR-60'S 1ST DEGREE AVB. BED ALARM IN PLACE FOR PATIENT SAFETY. CALL LIGHT IN REACH. WILL CONT TO MONITOR.
--- NOTE | 2024-11-10 21:00 | NUR ---
PATIENT TURNED AND REPOSITIONED ON LEFT SIDE. PATIENT COUSIN-NAWAF NOBLES CALLED INQUIRING IF PATIENT WAS A PATIENT AT OUR F[facility]. SPOKE MWITH PATIENT AND SHE DID COMFIRM THAT NAWAF WAS HER COUSIN. NAWAF LEFT HER IBHXID-[id number]. STATES THAT SHE WILL CHECK ON THE PATIENT CATS FOR HER AND PATIENT APPEARS PLEASED. IV ROCEPHIN INFUSING AT THIS TIME FOR UTI. IV SITE TO LEFT HAND REMAINS HEALTHY. ROMERO CONT TO DRAIN YELLOW URINE. TELE MONITOR IN PLACE. CALL LIGHT IN REACH. WILL CONT TO MONITOR.
[2024-11-11 00:01] VITALS: BP 110/63
--- NOTE | 2024-11-11 02:04 | NUR ---
RESTING IN BED POSITIONED ON SIDE. EYES ARE CLOSED AND RESPS ARE EVEN AND UNLABORED. IVF PATENT AND INFUSING VIA LEFT HAND SITE AT 100CC/HR. TELE MONITOR IN PLACE. ROMERO CONT TO DRAIN YELLOW URINE. BED ALARM IN PLACE FOR PATIENT SAFETY. CALL LIGHT IN REACH. WILL CONT TO MONITOR.
--- NOTE | 2024-11-11 04:28 | NUR ---
RESTING IN BED AT THIS TIME WITH HOB SLIGHTLY ELEVATED. EYES CLOSED AND RESPS ARE EVEN AND UNLABORED. IVF PATIENT AND INFUSING VIA LEFT HAND SITE ORDERED AT 100CC/HR. ROMERO PATENT AND DRAINING YELLOW URINE. TELE MONITOR IN PLACE AND CONT TO READ SR-60'S 1ST DEGREE AVB. BED ALARM INPLACE FOR PATIENT SAFETY. CALL LIGHT IN REACH. WILL CONT TO MONITOR.
[2024-11-11 04:39] VITALS: BP 163/65
[2024-11-11 04:52] LABS: HEMATOCRIT 35.2 % (37.0-47.0); HEMOGLOBIN 11.5 g/dl (12.0-16.0); MEAN CELL VOLUME 93.6 fL CALC (80.0-100.0); MEAN CORPUSCULAR HGB 30.6 pG CALC (26.0-32.0); MEAN CORPUSCULAR HGB CONC 32.7 g/dL CAL (32.0-36.0); RED BLOOD COUNT 3.76 mill/uL (4.20-5.60); RED CELL DISTRI WIDTH 13.3 % (11.5-15.5)
[2024-11-11 05:03] LABS: ALBUMIN 2.3 g/dL (3.2-5.0); BILIRUBIN, TOTAL 0.5 mg/dL (0.02-1.3); CREATININE 0.8 mg/dL (0.5-1.0); MAGNESIUM 2.2 mg/dL (1.6-2.3); POTASSIUM 3.3 mmol/l (3.5-5.1); TOTAL PROTEIN 4.9 g/dL (6.3-8.2)
--- NOTE | 2024-11-11 07:26 | NUR ---
PATIENT LYING IN BED WATCHING TV. BREATHING UNLABORED ON 2L NC. TELE INTACT. IV INFUSING FLUIDS PER EMAR;SITE CLEAN AND INTACT. ROMERO IN PLACE WITH NO KINKS. PT STATES TO FEEL OKAY THIS MORNING. BED IN LOWEST POSITION. CALL LIGHT WITHIN REACH. NO OTHER NEEDS AT THIS TIME. POC ONGOING.
[2024-11-11] MEDS ORDERED: POTASSIUM CHLORIDE 20 MEQ/TAB PO SCH (07:30)
[2024-11-11] MEDS ORDERED: KEFLEX500 MG PO (07:50)
[2024-11-11] MEDS ORDERED: POTASSIUM CHLORIDE 20 MEQ/PKT POWDER PO SCH (09:00)
--- NOTE | 2024-11-11 11:01 | NUR ---
Discharge instructions given. Patient verbalizes understanding of same. Discharged in stable condition via Stretcher to *Other with staff. All belongings sent with pt. Tele #[phone] removed and placed in bin at nursing station.
--- NOTE | 2024-11-11 17:10 | NUR ---
CALLED [facility] [place] TO GIVE REPORT FOR PT @1110 WAS TRNASFERRED 3 TIMES AND THEN TOLD TO LEAVE MY NAME AND NUMBER FOR A CALL BACK TO GIVE REPORT. PROVIDED THEM WITH BOTH HOWEVER, NEVER RECIEVED A PHONE CALL BACK TO GIVE REPORT TO [facility].
== END 2024-11-11 11:00 | DRG 558 ==
LOC: ED 17:54 → ED-I 20:20 → ED 21:14 → MS2 21:15
PROVIDERS: Nurse Practitioner; Nurse Practitioner Family; ADMIT Internal Medicine; ATTEND Internal Medicine
PROC: 0T9B70Z Drainage of Bladder with Drainage Device, Via Natural or Artificial Opening (ICD-10-PCS; principal; 2024-11-08)
DX: M62.82 Rhabdomyolysis (principal); I69.951 Hemiplegia and hemiparesis following unspecified cerebrovascular disease affecting right dominant side; N17.9 Acute kidney failure, unspecified; E44.0 Moderate protein-calorie malnutrition; N39.0 Urinary tract infection, site not specified; L89.150 Pressure ulcer of sacral region, unstageable; B95.4 Other streptococcus as the cause of diseases classified elsewhere; I10 Essential (primary) hypertension; W06.XXXA Fall from bed, initial encounter; Y92.003 Bedroom of unspecified non-institutional (private) residence as the place of occurrence of the external cause; Z68.25 Body mass index [BMI] 25.0-25.9, adult; Z60.2 Problems related to living alone
CPT/HCPCS: J0696; J2405